=== PATIENT | female | born 1960 | race African-American/Black ===

== ENCOUNTER 2016-12-08 05:32 | Emergency (ER) | payer OTHER ==
[~2016-12-08] VITALS: Ht 170.2 cm; Wt 101.1 kg
[2016-12-08 05:41] VITALS: BP 142/85; PULSE 90; RESP 18; TEMP 98.8; O2SAT 100
[2016-12-08] MEDS ORDERED: ZYRT10CA PO (06:00)
[2016-12-08] MEDS ORDERED: SODIUM CHLORIDE 0.9% FLUSH 5 ML FLUSH IVF PRN (06:00)
[2016-12-08] MEDS ORDERED: BENI40TA3 PO (06:00)
[2016-12-08] MEDS ORDERED: ROSU5 PO (06:00)
[2016-12-08] MEDS ORDERED: METO100T PO (06:00)
[2016-12-08] MEDS ORDERED: RESP: ALBUTEROL 2.5 MG/3 ML NEB (SCH) INH ONE (06:00)
--- NOTE | 2016-12-08 06:04 | PD ---
HPI Chief Complaint: Respiratory Symptoms Time Seen by Provider: 05:59 Travel History International Travel<30 days: No Contact w/Intl Traveler<30days: No Traveled to known affect area: No History of Present Illness HPI 56-year-old female presents to the emergency department by private transportation for complaint of shortness of breath. Patient has been having issues with respiratory complaints for the past several weeks and has been referred to a pipe installer to have primary function tests. Patient states since Monday she's developed a respiratory illness with sore throat and cough. Patient has been given an inhaler by her primary care physician that has not been helpful. Patient notes this morning that shortness of breath was worsening since decided to come to the emergency room. No fever and no productive cough. Patient denies pleuritic chest pain or chest pain. Patient denies referred neck jaw back shoulder arm mid scapular or abdominal pain. Patient has history of hypertension denies personal history of dyslipidemia CAD diabetes or tobaccoism. Patient has family history of clotting disorder and her mother after surgery. Patient has had hysterectomy and did not have any issues with blood clots. Patient is not reporting lower extremity pain or swelling. No reported lung distance travel protracted bedrest her surgical procedure. Pain is 0/10 in intensity. PFSH Past Medical History Narrative Medical Dyslipidemia hypertension hysterectomy no tobacco use family history blood clots nursing notes reviewed High Cholesterol: Yes Hypertension: Yes Tetanus Vaccination: > 5 Years Influenza Vaccination: No ?: Not Past Surgical History Hysterectomy: Yes Social History Alcohol Use: Yes (occ) Tobacco Use: No Allergies-Medications (Allergen,Severity, Reaction): Coded Allergies: No Known Allergies (Unverified , 12/08/16) Reported Meds & Prescriptions Reported Meds & Active Scripts Active Reported Zyrtec Allergy (Cetirizine HCl) 10 Mg Cap 10 Mg PO DAILY Benicar (Olmesartan) 40 Mg Tab 40 Mg PO DAILY Metoprolol Tartrate 100 Mg Tab 100 Mg PO DAILY Crestor (Rosuvastatin Calcium) 5 Mg Tab 5 Mg PO DAILY Narrative Medication Inhaler Review of Systems Except as stated in HPI: all other systems reviewed are Neg General / Constitutional: No: Fever, Chills HENT: Positive: Sore Throat, Congestion Cardiovascular: No: Chest Pain or Discomfort Respiratory: Positive: Cough, Shortness of Breath, No: Hemoptysis, Stridor, Pleuritic Pain Gastrointestinal: No: Nausea, Vomiting Genitourinary: No: Flank Pain Musculoskeletal: No: Myalgias, Arthralgias Skin: No Rash Neurologic: No: Weakness Hematologic/Lymphatic: No: Lymph Node Enlargement Physical Exam Narrative GENERAL: Well-developed well-nourished female mildly hoarse without stridor SKIN: Warm and dry. HEAD: Normocephalic. EYES: No scleral icterus. No injection or drainage. NECK: Supple, trachea midline. No JVD or lymphadenopathy. CARDIOVASCULAR: Regular rate and rhythm without murmurs, gallops, or rubs. RESPIRATORY: Breath sounds equal bilaterally diminished bilaterally. No accessory muscle use. GASTROINTESTINAL: Abdomen soft, non-tender, nondistended. MUSCULOSKELETAL: No cyanosis, or edema. BACK: Nontender without obvious deformity. No CVA tenderness. Data Data Last Documented VS Vital Signs Date Time Temp Pulse Resp B/P Pulse Ox O2 Delivery O2 Flow Rate FiO2 12/08/16 07:12 Room Air 12/08/16 06:39 109 19 143/70 100 12/08/16 05:41 98.8 Orders Complete Blood Count With Diff (12/08/16 05:59) Basic Metabolic Panel (Bmp) (12/08/16 05:59) B-Type Natriuretic Peptide (12/08/16 05:59) Magnesium (Mg) (12/08/16 05:59) Ckmb (Isoenzyme) Profile (12/08/16 05:59) Troponin I (12/08/16 05:59) Iv Access Insert/Monitor (12/08/16 05:59) Electrocardiogram (12/08/16 05:59) Ecg Monitoring (12/08/16 05:59) Oximetry (12/08/16 05:59) Oxygen Administration (12/08/16 05:59) Chest, Single Ap (12/08/16 05:59) Sodium Chloride 0.9% Flush (Ns Flush) (12/08/16 06:00) Albuterol Neb (Albuterol Neb) (12/08/16 06:00) CKMB (12/08/16 06:15) CKMB% (12/08/16 06:15) D-Dimer (12/08/16 06:51) Potassium Chloride (Kcl) (12/08/16 07:00) Potassium Chlor 10 Meq Premix (Kcl 10 Me (12/08/16 07:00) Methylprednisolone So Succ Inj (Solumedr (12/08/16 07:00) Albuterol Neb (Albuterol Neb) (12/08/16 07:00) Ct Pulmonary Angiogram (12/08/16 ) Labs Laboratory Tests Test 12/08/16 12/08/16 06:15 06:50 White Blood Count 7.1 TH/MM3 Red Blood Count 4.31 MIL/MM3 Hemoglobin 12.6 GM/DL Hematocrit 37.9 % Mean Corpuscular Volume 87.8 FL Mean Corpuscular Hemoglobin 29.3 PG Mean Corpuscular Hemoglobin 33.3 % Concent Red Cell Distribution Width 12.6 % Platelet Count 309 TH/MM3 Mean Platelet Volume 6.8 FL Neutrophils (%) (Auto) 74.3 % Lymphocytes (%) (Auto) 17.1 % Monocytes (%) (Auto) 7.1 % Eosinophils (%) (Auto) 0.9 % Basophils (%) (Auto) 0.6 % Neutrophils # (Auto) 5.2 TH/MM3 Lymphocytes # (Auto) 1.2 TH/MM3 Monocytes # (Auto) 0.5 TH/MM3 Eosinophils # (Auto) 0.1 TH/MM3 Basophils # (Auto) 0.0 TH/MM3 CBC Comment DIFF FINAL Differential Comment Sodium Level 143 MEQ/L Potassium Level 2.8 MEQ/L Chloride Level 105 MEQ/L Carbon Dioxide Level 26.8 MEQ/L Anion Gap 11 MEQ/L Blood Urea Nitrogen 8 MG/DL Creatinine 0.74 MG/DL Estimat Glomerular Filtration 99 ML/MIN Rate Random Glucose 123 MG/DL Calcium Level 9.2 MG/DL Magnesium Level 2.0 MG/DL Total Creatine Kinase 144 U/L Creatine Kinase MB 1.9 NG/ML Troponin I LESS THAN 0.02 NG/ML B-Type Natriuretic Peptide 17 PG/ML D-Dimer Quantitative (PE/DVT) 1.41 MG/L [facility]U [facility] Medical Decision Making Medical Screen Exam Complete: Yes Emergency Medical Condition: Yes Medical Record Reviewed: Yes Interpretation(s) EKG sinus tachycardia rate [address] elevation or injury pattern change noted cbc: Values grossly within normal range except for 74% neutrophils by automated differential Metabolic panel: Coagulation studies: Chest x-ray: FINDINGS: A single view of the chest demonstrates the lungs to be symmetrically aerated without evidence of mass, infiltrate or effusion. The cardiomediastinal contours are unremarkable. Osseous structures are intact. CONCLUSION: No acute disease. Homero Kwon MD on December 08, 2016 at 6:29 Board Certified Radiologist. This report was verified electronically. Laboratory Tests Test 12/08/16 06:15 White Blood Count 7.1 TH/MM3 Red Blood Count 4.31 MIL/MM3 Hemoglobin 12.6 GM/DL Hematocrit 37.9 % Mean Corpuscular Volume 87.8 FL Mean Corpuscular Hemoglobin 29.3 PG Mean Corpuscular Hemoglobin 33.3 % Concent Red Cell Distribution Width 12.6 % Platelet Count 309 TH/MM3 Mean Platelet Volume 6.8 FL Neutrophils (%) (Auto) 74.3 % Lymphocytes (%) (Auto) 17.1 % Monocytes (%) (Auto) 7.1 % Eosinophils (%) (Auto) 0.9 % Basophils (%) (Auto) 0.6 % Neutrophils # (Auto) 5.2 TH/MM3 Lymphocytes # (Auto) 1.2 TH/MM3 Monocytes # (Auto) 0.5 TH/MM3 Eosinophils # (Auto) 0.1 TH/MM3 Basophils # (Auto) 0.0 TH/MM3 CBC Comment DIFF FINAL Differential Comment Sodium Level 143 MEQ/L Potassium Level 2.8 MEQ/L Chloride Level 105 MEQ/L Carbon Dioxide Level 26.8 MEQ/L Anion Gap 11 MEQ/L Blood Urea Nitrogen 8 MG/DL Creatinine 0.74 MG/DL Estimat Glomerular Filtration 99 ML/MIN Rate Random Glucose 123 MG/DL Calcium Level 9.2 MG/DL Magnesium Level 2.0 MG/DL Total Creatine Kinase 144 U/L Troponin I LESS THAN 0.02 NG/ML B-Type Natriuretic Peptide 17 PG/ML Differential Diagnosis Dyspnea, bronchitis, pneumonia, ACS, PE, CHF Narrative Course Patient placed on cardiac specialist IV access obtained specimens collected and sent for resulting patient administered albuterol neb treatment times one EKG performed elevated D-dimer --- CT pulmonary angiogram ordered care signed over to Dr Zarate Diagnosis Primary Impression: Bronchitis Emma Rey MD Dec 08, 2016 06:04
[2016-12-08 06:25] LABS: AUTOMATED NEUTROPHIL # 5.2 TH/MM3 (1.8-7.7); BASOPHIL % 0.6 % (0.0-2.0); EOSINOPHIL # 0.1 TH/MM3 (0-0.4); EOSINOPHIL % 0.9 % (0.0-4.0); HEMATOCRIT 37.9 % (35.0-46.0); HEMO FLAGS DIFF FINAL; LYMPH % 17.1 % (9.0-44.0); LYMPHOCYTE # 1.2 TH/MM3 (1.0-4.8); MEAN CELL VOLUME 87.8 FL (80.0-100.0); MEAN CORPUSCULAR HEMOGLOBIN 29.3 PG (27.0-34.0); MEAN CORPUSCULAR HGB CONC 33.3 % (32.0-36.0); MONO % 7.1 % (0.0-8.0); NEUT % 74.3 % (16.0-70.0); PLATELET COUNT 309 TH/MM3 (150-450); RED BLOOD COUNT 4.31 MIL/MM3 (4.00-5.30); RED CELL DISTRIBUTION WIDTH 12.6 % (11.6-17.2); WHITE BLOOD COUNT 7.1 TH/MM3 (4.0-11.0)
--- NOTE | 2016-12-08 06:30 | RADHPO ---
EXAM DATE/TIME: 12/08/2016 06:21 [facility] COMPARISON: No previous studies available for comparison. INDICATIONS : Cough, shortness of breath, tightness in left side of chest for 3 days MEDICAL HISTORY : None. SURGICAL HISTORY : None. ENCOUNTER: Initial ACUITY: 3 days PAIN SCORE: 0/10 LOCATION: Left chest FINDINGS: A single view of the chest demonstrates the lungs to be symmetrically aerated without evidence of mas s, infiltrate or effusion. The cardiomediastinal contours are unremarkable. Osseous structures are intact. CONCLUSION: No acute disease. Homero Kwon MD on December 08, 2016 at 6:29 Board Certified Radiologist. This report was verified electronically.
[2016-12-08 06:39] VITALS: BP 143/70; PULSE 109; RESP 19; O2SAT 100
[2016-12-08 06:44] LABS: ANION GAP 11 MEQ/L (5-15); BICARBONATE 26.8 MEQ/L (21.0-32.0); BLOOD UREA NITROGEN 8 MG/DL (7-18); CHLORIDE 105 MEQ/L (98-107); CREATINE KINASE 144 U/L (26-192); GLOMERULAR FILTRATION RATE 99 ML/MIN (>89); SODIUM (NA) 143 MEQ/L (136-145)
[2016-12-08 06:50] LABS: POTASSIUM 2.8 MEQ/L (3.5-5.1)
[2016-12-08] MEDS ORDERED: POTASSIUM CHLORIDE 20 MEQ CONTROLLED RELEASE TAB PO ONE (07:00)
[2016-12-08] MEDS ORDERED: RESP: ALBUTEROL 2.5 MG/3 ML NEB (SCH) NEB ONE (07:00)
[2016-12-08] MEDS ORDERED: POTASSIUM CHLOR 10 MEQ PREMIX 100 ML IV ONE (07:00)
[2016-12-08] MEDS ORDERED: methylPREDNISolone SOD SUCC 125 MG/2 ML VIAL IV PUSH ONE (07:00)
[2016-12-08 07:07] LABS: CKMB 1.9 NG/ML (0.5-3.6)
[2016-12-08] MEDS ORDERED: IOHEXOL 350 MG/ML 10 ML VIAL (for RAD DIAG) IV ONE (08:25)
--- NOTE | 2016-12-08 08:38 | RADHPO ---
EXAM DATE/TIME: 12/08/2016 08:15 [facility] COMPARISON: No previous studies available for comparison. INDICATIONS : Short of breath. Tightness in left chest. Cough. IV CONTRAST: 75 cc Omnipaque 350 (iohexol) IV RADIATION DOSE: 20.73 CTDIvol (mGy) MEDICAL HISTORY : Hypertension. SURGICAL HISTORY : Hysterectomy. ENCOUNTER: Initial ACUITY: 3 days PAIN SCALE: 0/10 LOCATION: Left chest TECHNIQUE: Volumetric scanning of the chest was performed using a pulmonary embolism protocol MIP images were re constructed. Using automated exposure control and adjustment of the mA and/or kV according to patien t size, radiation dose was kept as low as reasonably achievable to obtain optimal diagnostic quality images. FINDINGS: PULMONARY ARTERIES: No filling defects are seen in the pulmonary arteries through the segmental level. LUNGS: There is no consolidation or pneumothorax . No concerning pulmonary nodule is visualized. PLEURAE: There is no pleural thickening or pleural effusion. MEDIASTINUM: There is good visualization of the great vessels of the middle mediastinum. No evidence of mediastin al or hilar adenopathy/mass. MUSCULOSKELETAL: Within normal limits for patient age. MISCELLANEOUS: The visualized upper abdominal organs demonstrate no acute abnormality. CONCLUSION: 1. No evidence of pulmonary embolism. 2. No focal or acute pulmonary infiltrates. Lew Soto MD on December 08, 2016 at 8:33 Board Certified Radiologist. This report was verified electronically.
[2016-12-08] MEDS ORDERED: ZITHTAB PO (09:04)
[2016-12-08] MEDS ORDERED: ALBU6.7H INH (09:04)
[2016-12-08] MEDS ORDERED: PRED50 PO (09:04)
--- NOTE | 2016-12-08 09:04 | PD ---
Physical Exam Date Seen by Provider: Dec 08, 2016 Time Seen by Provider: 07:00 Narrative Patient signed out to me by Dr. Rey, please see previous note for further details. Patient is signed out to me awaiting CTA. Has been having bronchitis which has been evaluated with primary care physician, being sent for pulmonary function testing. Laboratory Tests Test 12/08/16 12/08/16 06:15 06:50 Mean Platelet Volume 6.8 FL (7.0-11.0) Neutrophils (%) (Auto) 74.3 % (16.0-70.0) Potassium Level 2.8 MEQ/L (3.5-5.1) Random Glucose 123 MG/DL (74-106) Troponin I LESS THAN 0.02 NG/ML (0.02-0.05) D-Dimer Quantitative (PE/DVT) 1.41 MG/L FEU (0.00-0.50) Last 24 hours Impressions Chest X-Ray 12/08/16 0559 Signed Impressions: Service Date/Time: November 06:21 - CONCLUSION: No acute disease. Homero Kwon MD CT Angiography 12/08/16 0000 Signed Impressions: Service Date/Time: , December 08, 2016 08:15 - CONCLUSION: 1. No evidence of pulmonary embolism. 2. No focal or acute pulmonary infiltrates. Lew Soto MD Chest x-ray and CAT scans did not reveal any signs of acute pulmonary processes. At this point, patient will be released as per discussion with Dr. Rey to follow-up with primary care physician. I will give her symptomatic relief for bronchitis. Return for any worsening in symptoms as necessary. The plan has been discussed with the patient and she states understanding. Data Data Last Documented VS Vital Signs Date Time Temp Pulse Resp B/P Pulse Ox O2 Delivery O2 Flow Rate FiO2 12/08/16 07:12 Room Air 12/08/16 06:39 109 19 143/70 100 12/08/16 05:41 98.8 Orders Complete Blood Count With Diff (12/08/16 05:59) Basic Metabolic Panel (Bmp) (12/08/16 05:59) B-Type Natriuretic Peptide (12/08/16 05:59) Magnesium (Mg) (12/08/16 05:59) Ckmb (Isoenzyme) Profile (12/08/16 05:59) Troponin I (12/08/16 05:59) Iv Access Insert/Monitor (12/08/16 05:59) Electrocardiogram (12/08/16 05:59) Ecg Monitoring (12/08/16 05:59) Oximetry (12/08/16 05:59) Oxygen Administration (12/08/16 05:59) Chest, Single Ap (12/08/16 05:59) Sodium Chloride 0.9% Flush (Ns Flush) (12/08/16 06:00) Albuterol Neb (Albuterol Neb) (12/08/16 06:00) CKMB (12/08/16 06:15) CKMB% (12/08/16 06:15) D-Dimer (12/08/16 06:51) Potassium Chloride (Kcl) (12/08/16 07:00) Potassium Chlor 10 Meq Premix (Kcl 10 Me (12/08/16 07:00) Methylprednisolone So Succ Inj (Solumedr (12/08/16 07:00) Albuterol Neb (Albuterol Neb) (12/08/16 07:00) Ct Pulmonary Angiogram (12/08/16 ) Iohexol 350 Inj (Omnipaque 350 Inj) (12/08/16 08:25) Labs Laboratory Tests Test 12/08/16 12/08/16 06:15 06:50 White Blood Count 7.1 TH/MM3 Red Blood Count 4.31 MIL/MM3 Hemoglobin 12.6 GM/DL Hematocrit 37.9 % Mean Corpuscular Volume 87.8 FL Mean Corpuscular Hemoglobin 29.3 PG Mean Corpuscular Hemoglobin 33.3 % Concent Red Cell Distribution Width 12.6 % Platelet Count 309 TH/MM3 Mean Platelet Volume 6.8 FL Neutrophils (%) (Auto) 74.3 % Lymphocytes (%) (Auto) 17.1 % Monocytes (%) (Auto) 7.1 % Eosinophils (%) (Auto) 0.9 % Basophils (%) (Auto) 0.6 % Neutrophils # (Auto) 5.2 TH/MM3 Lymphocytes # (Auto) 1.2 TH/MM3 Monocytes # (Auto) 0.5 TH/MM3 Eosinophils # (Auto) 0.1 TH/MM3 Basophils # (Auto) 0.0 TH/MM3 CBC Comment DIFF FINAL Differential Comment Sodium Level 143 MEQ/L Potassium Level 2.8 MEQ/L Chloride Level 105 MEQ/L Carbon Dioxide Level 26.8 MEQ/L Anion Gap 11 MEQ/L Blood Urea Nitrogen 8 MG/DL Creatinine 0.74 MG/DL Estimat Glomerular Filtration 99 ML/MIN Rate Random Glucose 123 MG/DL Calcium Level 9.2 MG/DL Magnesium Level 2.0 MG/DL Total Creatine Kinase 144 U/L Creatine Kinase MB 1.9 NG/ML Troponin I LESS THAN 0.02 NG/ML B-Type Natriuretic Peptide 17 PG/ML D-Dimer Quantitative (PE/DVT) 1.41 MG/L [facility] Medical Record Reviewed: Yes Supervised Visit with PHILIP: No Diagnosis Primary Impression: Bronchitis Med/Other Pt SpecificInfo: Prescription(s) given Scripts Azithromycin (Zithromax Z-Juan Manuel)250 Mg [id number] Mg PO DIRECTED #1 DSPK Ref 0 500 MG (2 tabs) day 1, then 1 tab days 2-5. Prov:Donald Zarate MD 12/08/16 Prednisone 50 Mg Tab50 Mg PO DAILY #5 TAB Ref 0 Prov:Donald Zarate MD 12/08/16 Albuterol 6.7 GM Inh (Proventil Hfa 6.7 GM Inh)90 Mcg/Act Aer2 Puff INH Q4-6H PRN (SHORTNESS OF BREATH) #1 INHALER Ref 0 Prov:Donald Zarate MD 12/08/16 Disposition: 01 DISCHARGE HOME Condition: Stable Donald Zarate MD Dec 08, 2016 09:04
[2016-12-08 09:14] VITALS: BP 140/78; PULSE 94; RESP 16; O2SAT 97
--- NOTE | 2016-12-08 20:55 | EKG ---
Date Performed: 12/08/2016 Time Performed: 06:08:46 PTAGE: 56 years EKG: Sinus tachycardia ST junctional depression is nonspecific Borderline ECG NO PREVIOUS TRACING DOCTOR: Rod Howard Interpretating Date/Time 12/08/2016 20:54:06
== END 2016-12-08 09:38 | disposition home or self-care (01) ==
LOC: PHED 05:32
DX: J40 Bronchitis, not specified as acute or chronic (principal); R05 Cough; J02.9 Acute pharyngitis, unspecified; E78.00 Pure hypercholesterolemia, unspecified; I10 Essential (primary) hypertension; R94.31 Abnormal electrocardiogram [ECG] [EKG]
CPT/HCPCS: 71010; 71275; 80048; 82550; 82552; 83735; 83880; 84484; 85025; 85379; 93005; 94664; 96365; 96366; 96375; 99284; J2930; J3480; J7613; Q9967